=== PATIENT | male | born 1955 | race Caucasian/White ===

== ENCOUNTER 2020-11-20 17:48 | Emergency (ER) | payer MEDICARE ==
[2020-11-20 19:05] LABS: Hemoglobin 15.2 g/dL (14.0-18.0); Mean Corpuscular Hemoglobin 31.4 pg (27.0-31.0); Mean Corpuscular Volume 92.2 fL (78.0-98.0); Mean Platelet Volume 10.8 fL (7.4-10.4); Platelet Count 136 thou/uL (130-400); RBC Distribution Width 13.3 % (11.5-14.5); Red Blood Cell (RBC) Count 4.84 mill/uL (4.70-6.10); White Blood Cell (WBC) Count 3.3 thou/uL (4.8-10.8)
[2020-11-20 19:15] LABS: Bilirubin Negative (Negative); Blood, Urine Negative (Negative); Clarity Clear (Clear); Glucose, Urine (Dipstick) Greater than 1000 mg/dL (Negative); Ketone, Urine Negative (Negative); Leukocyte Negative Leu/uL (Negative); Nitrite Negative (Negative); Protein, Urine (Dipstick) 10 mg/dL (Neg-Trace); Specific Gravity, Urine 1.039 (1.002-1.036); Urobilinogen Normal mg/dL (Less than 2)
[2020-11-20 19:28] LABS: Band 22 % (5-11); Eosinophils 4 % (0-10); Lymphocytes 25 % (21-51); MDiff Complete? YES; Monocytes 12 % (0-10); Neutrophil 25 % (42-75); Platelet Morphology Comment Appears Adequate; RBC Morphology Normal; Reactive Lymphocytes 12 % (0-10)
[2020-11-20 19:30] LABS: ALT (SGPT) 75 U/L (8-55); AST (SGOT) 72 U/L (5-34); Albumin 3.7 g/dL (3.4-4.8); Alkaline Phosphatase 128 U/L (40-110); Anion Gap 19 mmol/L (10-20); BUN (Urea Nitrogen) 15 mg/dL (8.4-25.7); Bilirubin, Total Less than 0.2 mg/dL (0.2-1.2); CK (CPK) 165 U/L (30-200); Calc. Creatinine Clearance 0 mL/min (70-130); Calcium 8.9 mg/dL (7.8-10.44); Carbon Dioxide 22 mmol/L (23-31); Chloride 102 mmol/L (98-107); Globulin 3.8 g/dL (2.4-3.5); Glucose 441 mg/dL (80-115); Lipase 19 U/L (8-78); Potassium 5.5 mmol/L (3.5-5.1); Protein, Total 7.5 g/dL (5.8-8.1); Sodium 137 mmol/L (136-145)
[2020-11-20] MEDS ORDERED: Morphine 4 MG/ML VIAL ONE (19:58)
[2020-11-20] MEDS ORDERED: Cefepime 2 GM VIAL ONE (20:27)
[2020-11-20] MEDS ORDERED: Fentanyl 100 MCG/2 ML VIAL ONE (20:28)
[2020-11-20] MEDS ORDERED: Vancomycin 1 GM/200 ML BAG ONE (20:28)
[2020-11-20] MEDS ORDERED: Ketorolac Tromethamine 30 MG/ML VIAL ONE (20:28)
[2020-11-20 21:34] LABS: SARS-CoV-2 NAA Rapid Test DETECTED (NotDetected)
[2020-11-20] MEDS ORDERED: Insulin Regular 300 UNITS/3 ML VIAL ONE (22:18)
== END 2020-11-20 23:45 | disposition home or self-care (01) ==
LOC: ERS 17:48
DX: U07.1 COVID-19 (principal); J12.82 Pneumonia due to coronavirus disease 2019; R10.84 Generalized abdominal pain; I10 Essential (primary) hypertension; E11.9 Type 2 diabetes mellitus without complications; E78.5 Hyperlipidemia, unspecified; Z86.711 Personal history of pulmonary embolism; Z86.718 Personal history of other venous thrombosis and embolism; Z79.01 Long term (current) use of anticoagulants; Z79.84 Long term (current) use of oral hypoglycemic drugs; Z79.899 Other long term (current) drug therapy
CPT/HCPCS: 71045; 74177; 76870; 80053; 81003; 82550; 82962; 83605; 83690; 83880; 84484; 85025; 87040; 87086; 93005; 93976; 96365; 96367; 96375; 99284; U0002; 36416; J0692; J1815; J1885; J2270; J3010; J3370

== ENCOUNTER 2023-01-12 14:24 | Inpatient (IN) | payer MEDICARE ==
[2023-01-12 15:29] LABS: #Eosinphils 0.2 thou/uL (0.0-0.7); #Monocytes 0.5 thou/uL (0.11-0.59); #Neutrophils 4.2 thou/uL (1.40-6.50); %Basophils 0.5 % (0.0-1.0); %Eosinophils 3.7 % (0.0-10.0); %Lymphocytes 23.1 % (21.0-51.0); %Monocytes 7.6 % (0.0-10.0); %Neutrophils 64.8 % (42.0-75.0); Hematocrit 42.4 % (42.0-52.0); Hemoglobin 13.7 g/dL (14.0-18.0); Mean Corpuscular HGB CONC 32.3 g/dL (32.0-36.0); Mean Corpuscular Hemoglobin 28.4 pg (27.0-31.0); Mean Platelet Volume 11.1 fL (7.4-10.4); Platelet Count 185 10x3/uL (130-400); RBC Distribution Width 12.5 % (11.5-14.5); Red Blood Cell (RBC) Count 4.82 mill/uL (4.70-6.10); White Blood Cell (WBC) Count 6.5 10x3/uL (4.8-10.8)
[2023-01-12 15:57] LABS: ALT (SGPT) 18 U/L (8-55); AST (SGOT) 14 U/L (5-34); Alkaline Phosphatase 125 U/L (40-110); Anion Gap 14 mmol/L (10-20); BUN (Urea Nitrogen) 16 mg/dL (8.4-25.7); Bilirubin, Total 0.2 mg/dL (0.2-1.2); Calc. Creatinine Clearance 0 mL/min (70-130); Calcium 9.6 mg/dL (7.8-10.44); Carbon Dioxide 26 mmol/L (23-31); Chloride 100 mmol/L (98-107); Estimated GFR 88; Globulin 3.2 g/dL (2.4-3.5); Glucose 294 mg/dL (80-115); Magnesium 1.5 mg/dL (1.6-2.6); Potassium 4.7 mmol/L (3.5-5.1); Protein, Total 7.2 g/dL (5.8-8.1); Sodium 135 mmol/L (136-145)
[2023-01-12 15:59] LABS: Troponin I 0.012 ng/mL (< 0.028)
[2023-01-12] MEDS ORDERED: Dextrose 5% in Water 1,000 ML IV PRN (19:26)
[2023-01-12] MEDS ORDERED: Ondansetron ODT 4 MG TAB PO PRN (19:26)
[2023-01-12] MEDS ORDERED: Nitroglycerin 0.4 MG TAB (25 Tab Bottle) SL PRN (19:26)
[2023-01-12] MEDS ORDERED: HumaLOG 300 UNITS/3 ML VIAL SC PRN ×2 (19:26)
[2023-01-12] MEDS ORDERED: Dextrose 50% Abboject 50 ML SYRINGE SLOW IVP PRN (19:26)
[2023-01-12] MEDS ORDERED: Lorazepam 2 MG/ML VIAL SLOW IVP PRN (19:26)
[2023-01-12] MEDS ORDERED: Acetaminophen 325 MG TAB PO PRN (19:26)
[2023-01-12] MEDS ORDERED: Glucagon 1 MG/ML KIT IM PRN (19:26)
[2023-01-12] MEDS ORDERED: Magnesium 2 GM/50 ML(in water) 2 GM in Premix 1 BAG IVPB SCH (19:30)
[2023-01-12] MEDS ORDERED: Aspirin 325 MG TAB PO SCH (19:30)
[2023-01-12] MEDS ORDERED: clonazePAM 0.5 MG TAB PO SCH (20:30)
[2023-01-12 22:05] VITALS: BMI 36.0
[2023-01-12] MEDS: Ondansetron PF 4 MG/2 ML Vial IVP PRN (22:15)
[2023-01-12 22:33] LABS: Troponin I Less than 0.010 ng/mL (< 0.028)
[2023-01-13] MEDS ORDERED: Simethicone Chewable 80 MG TAB PO PRN (01:39)
[2023-01-13] MEDS ORDERED: hydrOXYzine 25 MG TAB PO PRN (01:44)
[2023-01-13] MEDS ORDERED: QUEtiapine 300 MG TAB PO SCH ×2 (02:00→21:00)
[2023-01-13 03:01] LABS: #Eosinphils 0.2 thou/uL (0.0-0.7); #Monocytes 0.7 thou/uL (0.11-0.59); %Basophils 0.3 % (0.0-1.0); %Eosinophils 3.5 % (0.0-10.0); %Lymphocytes 26.7 % (21.0-51.0); %Monocytes 10.9 % (0.0-10.0); %Neutrophils 58.5 % (42.0-75.0); Hematocrit 37.8 % (42.0-52.0); Hemoglobin 12.1 g/dL (14.0-18.0); Mean Corpuscular Hemoglobin 28.5 pg (27.0-31.0); Mean Corpuscular Volume 88.9 fl (78.0-98.0); Mean Platelet Volume 10.6 fL (7.4-10.4); Platelet Count 165 10x3/uL (130-400); RBC Distribution Width 12.5 % (11.5-14.5); Red Blood Cell (RBC) Count 4.25 mill/uL (4.70-6.10); White Blood Cell (WBC) Count 6.8 10x3/uL (4.8-10.8)
[2023-01-13 03:28] LABS: Troponin I Less than 0.010 ng/mL (< 0.028)
[2023-01-13 04:16] LABS: Hemoglobin A1c 11.4 % (4.0-6.0)
[2023-01-13 04:20] LABS: Anion Gap 15 mmol/L (10-20); BUN (Urea Nitrogen) 16 mg/dL (8.4-25.7); Calc. Creatinine Clearance 148 mL/min (70-130); Calcium 9.2 mg/dL (7.8-10.44); Carbon Dioxide 20 mmol/L (23-31); Cardiac Risk 7.2 (Less than 4.5); Chloride 104 mmol/L (98-107); Cholesterol 268 mg/dl (< 200 Desired); Estimated GFR 96; Glucose 260 mg/dL (80-115); HDL Cholesterol 37 mg/dL (>60 Neg Risk); Potassium 4.4 mmol/L (3.5-5.1); Sodium 135 mmol/L (136-145)
[2023-01-13 06:38] LABS: Triglycerides 444 mg/dL (Less than 150)
[2023-01-13 06:43] LABS: LDL Cholesterol, Calculated 142 mg/dL
[2023-01-13 07:27] LABS: SARS-CoV-2 NAA Rapid Test Not Detected (NotDetected)
[2023-01-13] MEDS ORDERED: Promethazine HCl 12.5 MG in Sodium Chloride 0.9% 50 ML IVPB PRN (08:37)
[2023-01-13] MEDS: Buprenorphine 8mg/Naloxone 2mg per 1 FILM SL SCH ×3 (10:47→16:37)
[2023-01-13] MEDS: Polyethylene Glycol 3350 17 GM Packet PO SCH (10:52)
[2023-01-13] MEDS: Apixaban 5 MG TAB PO SCH (10:52)
[2023-01-13] MEDS: Aspirin Chewable 81 MG TAB PO SCH (10:52)
[2023-01-13] MEDS: Gabapentin 300 MG CAP PO SCH ×2 (10:52→13:28)
[2023-01-13] MEDS: clonazePAM 0.5 MG TAB PO PRN (11:11)
[2023-01-13 13:24] LABS: Dilantin 7.3 ug/mL (10.0-20.0)
[2023-01-13] MEDS: Alogliptin 25 MG TAB PO SCH (13:28)
[2023-01-13] MEDS ORDERED: Polyethylene Glycol 3350 17 GM Packet PO PRN (15:30)
[2023-01-13] MEDS ORDERED: Bisacodyl 10 MG SUPP PR PRN (15:30)
[2023-01-13] MEDS ORDERED: Insulin Glargine 30 UNITS/0.3 ML VIAL SC SCH (15:45)
[2023-01-13] MEDS ORDERED: Phenytoin Extended Release 100 MG CAP PO SCH (21:00)
[2023-01-13] MEDS ORDERED: Pioglitazone HCl 15 MG TAB PO SCH (21:00)
[2023-01-13] MEDS ORDERED: Lisinopril 20 MG TAB PO SCH (21:00)
[2023-01-13] MEDS: Ondansetron PF 4 MG/2 ML Vial IVP PRN (23:33)
[2023-01-14] MEDS: Buprenorphine 8mg/Naloxone 2mg per 1 FILM SL SCH ×3 (02:12→11:37)
[2023-01-14] MEDS: Apixaban 5 MG TAB PO SCH ×2 (04:06→07:49)
[2023-01-14] MEDS: Gabapentin 300 MG CAP PO SCH ×3 (04:06→14:08)
[2023-01-14 07:22] LABS: Anion Gap 16 mmol/L (10-20); BUN (Urea Nitrogen) 17 mg/dL (8.4-25.7); Calc. Creatinine Clearance 137 mL/min (70-130); Calcium 9.6 mg/dL (7.8-10.44); Carbon Dioxide 23 mmol/L (23-31); Chloride 103 mmol/L (98-107); Estimated GFR 90; Glucose 237 mg/dL (80-115); Potassium 4.8 mmol/L (3.5-5.1); Sodium 137 mmol/L (136-145)
[2023-01-14] MEDS: clonazePAM 0.5 MG TAB PO PRN (07:50)
[2023-01-14] MEDS: Aspirin Chewable 81 MG TAB PO SCH (07:50)
[2023-01-14] MEDS: Polyethylene Glycol 3350 17 GM Packet PO SCH (07:52)
[2023-01-14 08:05] LABS: #Eosinphils 0.1 thou/uL (0.0-0.7); #Monocytes 0.7 thou/uL (0.11-0.59); #Neutrophils 3.1 thou/uL (1.40-6.50); %Basophils 0.3 % (0.0-1.0); %Eosinophils 1.7 % (0.0-10.0); %Lymphocytes 33.3 % (21.0-51.0); %Monocytes 12.2 % (0.0-10.0); %Neutrophils 52.2 % (42.0-75.0); Hematocrit 42.7 % (42.0-52.0); Hemoglobin 13.7 g/dL (14.0-18.0); Mean Corpuscular HGB CONC 32.1 g/dL (32.0-36.0); Mean Corpuscular Hemoglobin 28.7 pg (27.0-31.0); Mean Corpuscular Volume 89.5 fl (78.0-98.0); Mean Platelet Volume 10.9 fL (7.4-10.4); Platelet Count 147 10x3/uL (130-400); RBC Distribution Width 12.5 % (11.5-14.5); Red Blood Cell (RBC) Count 4.77 mill/uL (4.70-6.10)
[2023-01-14] MEDS ORDERED: Insulin Glargine 30 UNITS/0.3 ML VIAL SC SCH ×2 (09:00→15:15)
[2023-01-14 11:59] VITALS: TEMP 97.7
[2023-01-14] MEDS: Alogliptin 25 MG TAB PO SCH (14:08)
[2023-01-14 15:56] VITALS: BP 148/72
[2023-01-14] MEDS ORDERED: Amoxicillin/Potassium Clav 875 MG TAB PO SCH (21:00)
[2023-01-15] MEDS ORDERED: Insulin Glargine 30 UNITS/0.3 ML VIAL SC SCH ×2 (09:00)
== END 2023-01-14 17:14 | disposition home or self-care (01) | DRG 195 ==
LOC: ERS 14:24 → 2SW 19:26 → OBSVTOIN 01-13 15:42
PROVIDERS: ADMIT Physician Assistant; ATTEND Hospitalist
PROC: 4A00X4Z Measurement of Central Nervous Electrical Activity, External Approach (ICD-10-PCS; principal; 2023-01-13)
DX: J18.9 Pneumonia, unspecified organism (principal); F44.5 Conversion disorder with seizures or convulsions; I10 Essential (primary) hypertension; E78.5 Hyperlipidemia, unspecified; F31.9 Bipolar disorder, unspecified; M54.9 Dorsalgia, unspecified; G89.29 Other chronic pain; R13.14 Dysphagia, pharyngoesophageal phase; R06.09 Other forms of dyspnea; G47.33 Obstructive sleep apnea (adult) (pediatric); Z20.822 Contact with and (suspected) exposure to COVID-19; R06.01 Orthopnea; E11.65 Type 2 diabetes mellitus with hyperglycemia; E83.42 Hypomagnesemia; Z79.4 Long term (current) use of insulin; Z88.5 Allergy status to narcotic agent; Z90.79 Acquired absence of other genital organ(s); Z98.890 Other specified postprocedural states; Z86.718 Personal history of other venous thrombosis and embolism; Z79.899 Other long term (current) drug therapy
CPT/HCPCS: 36415; 36416; 70450; 71045; 71275; 76705; 78452; 80048; 80053; 80061; 80185; 83036; 83735; 83880; 84145; 84484; 85025; 93005; 93017; 93306; 95816; 95819; 96374; 96375; A9500; G0378; J0153; J0571; J0780; J1815; J2060; J2405; J3475; Q0162